=== PATIENT | female | born 1990 | race Caucasian/White ===

== ENCOUNTER → 2017-07-21 16:29 | Outpatient (CLI) | payer SELFPAY ==
--- NOTE | 2017-07-21 09:10 | MASS_PTH ---
PATIENT: JOSEFINA SOLIS LOC: [facility] U#:[id number] AGE/SX: 34/F ROOM: RE07/21/[address]: Dr. Buddy Campos MD : [id number] BED: DIS: SPEC #: [id number] RECD: 07/21/17 15:34 STATUS: MARIA CHRISTELLE #: [id number] PATIENCE: 07/21/17 09:[address]: Buddy Campos DEPT: SURGICAL PATHOLOGY RECD BY: Elva Wakefield ENTERED: 07/22/17 08:58 SP TYPE: Mass OTHR DR: LAVERNE Tissues: Neck, NOS Procedures: Surgery Specimen Level IV HEADER OPERATION: Excision, right neck mass PRE-OP DIAGNOSIS: Mass, right neck TISSUE SUBMITTED: Right neck mass MICROSCOPIC DIAGNOSIS Right neck mass, excision: Consistent with branchial cleft cyst. See comment. BOY:durga 07/23/17 COMMENT The specimen shows extensive benign lymphoid aggregate with reactive changes adjacent to the cyst. MICROSCOPIC DESCRIPTION Slides are reviewed. GROSS DESCRIPTION Received is one container labeled with the patient's name and not further designated. The specimen consists of an irregular piece of wilson-yellow soft tissue measuring 3 x 2.5 x 1 cm. The specimen appears to consist of a collapsed cyst. No obvious cyst contents are identified. The specimen is inked, serially sectioned and submitted entirely in two cassettes. / SJ:rg 07/22/17 TC:5 CPT: 58655
== END ==
PROVIDERS: Visit Provider Otolaryngology
DX: R22.1 Localized swelling, mass and lump, neck (principal)
CPT/HCPCS: 88305